=== PATIENT | male | born 1975 | race Caucasian/White ===

== ENCOUNTER 2022-03-20 00:35 | Day surgery (SDC) | payer BC, SELFPAY ==
[2022-03-06 11:34] VITALS: BMI 34.4
[2022-03-20 08:09] VITALS: BP 124/79; PULSE 66; RESP 18; TEMP 36.2; O2SAT 100; BMI 36.4
[2022-03-20] MEDS: LACTATED RINGERS 1,000 ML 150 ML IV CONT (08:30)
--- NOTE | 2022-03-20 08:37 | P.HP_ITS ---
History of Present Illness History of Present Illness Consent: Risks, benefits, and alternatives have been discussed and questions answered. Patient agrees to proceed with procedure. Chief complaint: neoplasm screening Narrative: Simone Suarez is a 46 year old male Presents for screening colonoscopy. Patient's current weight appetite and bowel movements are normal. He denies abdominal pain. He has had no bleeding. Family history is noncontributory. Review of Systems Review of Systems: Review of systems noncontributory. [facility] Past Medical History Medical History (Updated 03/20/22 @ 08:38 by Catalino Llanes MD) HLD (hyperlipidemia) Surgical History Surgical History Hx of vasectomy Social History Social History Smoking status: Never smoker Second hand tobacco smoke exposure: No Alcohol intake: current Substance use: never Substance use type: does not use Living arrangements: with family Occupation/Education: occupation Gender identity (if verbalized by the patient): Male Sexual Orientation (if Verbalized by the Patient): Straight or Heterosexual Spiritual care concerns: No Meds Home Medications and Allergies Home Medications Medication Instructions Recorded Confirmed Type sodium,potassium,mag sulfates 17.5 See Rx Instructions PO .COMPLEX 02/05/22 Rx gram-3.13 gram-1.6 gram oral soln #354 mL (Suprep Bowel Prep Kit) Allergies Allergy/AdvReac Type Severity Reaction Status Date / Time No Known Allergies Allergy Verified 03/06/22 11:33 Vital Signs Vital Signs - 24 hr 03/20/22 08:09 Temperature 97.1 F L Pulse Rate 66 Respiratory Rate 18 Blood Pressure 124/79 Pulse Oximetry 100 Oxygen Delivery Room Air Exam Narrative: Physical exam reveals patient to be alert. Vital signs stable. HEENT exam is unremarkable. Patient is anicteric. Lungs are clear to auscultation and percussion. Heart is without murmur or extra sounds. Abdomen bowel sounds present soft nontender with no organomegaly. Digital external rectal exam is normal. Assessment and Plan Assessment and plan (1) Encounter for screening colonoscopy: Code(s): Z12.11 - Encounter for screening for malignant neoplasm of colon Status: Acute Assessment and Plan: Patient presents today for screening colonoscopy. He appears to be at average risk for colon polyps. Further recommendations may be given after endoscopy.
--- NOTE | 2022-03-20 08:46 | P.PNAN_ITS ---
Anes - Initial Pre Proc Eval Procedure: Operation Date: 03/20/22 09:00 Proposed Procedures p Screening Colonoscopy - Catalino Llanes MD Date/Time: 03/20/22 08:46 Surgeon: Catalino Llanes MD Pre Op Diagnosis: neoplasm screening Patient Data Age: 46 Gender: M Height: 1.78 m Weight: 115.3 kg Last Vital Signs Temp 97.1 F L 03/20/22 08:09 Pulse 66 03/20/22 08:09 Resp 18 03/20/22 08:09 BP 124/79 03/20/22 08:09 Pulse Ox 100 03/20/22 08:09 O2 Del Method Room Air 03/20/22 08:09 Allergies Allergy/AdvReac Type Severity Reaction Status Date / Time No Known Allergies Allergy Verified 03/06/22 11:33 Home Medications Medication Instructions Recorded Confirmed Type sodium,potassium,mag sulfates 17.5 See Rx Instructions PO .COMPLEX 02/05/22 Rx gram-3.13 gram-1.6 gram oral soln #354 mL (Suprep Bowel Prep Kit) Patient hx anesthesia problems: none Family hx anesthesia problems: none Results Review: All pre-operative results and documents have been reviewed as part of the pre- operative evaluation. PMF Past Medical History Medical History (Updated 03/20/22 @ 08:38 by Catalino Llanes MD) HLD (hyperlipidemia) Surgical History Surgical History Hx of vasectomy Social History Social History Smoking status: Never smoker Second hand tobacco smoke exposure: No Alcohol intake: current Substance use: never Substance use type: does not use Living arrangements: with family Occupation/Education: occupation Gender identity (if verbalized by the patient): Male Sexual Orientation (if Verbalized by the Patient): Straight or Heterosexual Spiritual care concerns: No Anes - Eval Final PreProcedure Day of Procedure 03/20/22 08:46 Patient weight: obese Airway: Mallampati scale class II ASA classification: II Anesthesia type and monitoring: general GIVS and standard monitoring Results Review: All pre-operative results and documents have been reviewed as part of the pre- operative evaluation. Informed Consent: The patient's anesthetic plan and its attendant risks and benefits were discussed with the patient/family/POA. Questions were solicited and answers provided to the satisfaction of the patient/family/POA.
[2022-03-20 08:54] VITALS: BP 123/85; PULSE 63; RESP 25; O2SAT 95
[2022-03-20 09:04] VITALS: BP 116/81; PULSE 62; RESP 26; O2SAT 97
[2022-03-20 09:14] VITALS: BP 116/82; PULSE 62; RESP 16; O2SAT 96
== END 2022-03-20 09:16 | disposition home or self-care (01) ==
PROVIDERS: PCP Family Medicine; Visit Provider Internal Medicine Gastroenterology
PROC: 0DJD8ZZ Inspection of Lower Intestinal Tract, Via Natural or Artificial Opening Endoscopic (ICD-10-PCS; CPT 45378; principal; 2022-03-20 09:00)
DX: Z12.11 Encounter for screening for malignant neoplasm of colon (principal); E78.5 Hyperlipidemia, unspecified; E66.9 Obesity, unspecified; Z68.36 Body mass index [BMI] 36.0-36.9, adult
CPT/HCPCS: 45378; J2704; J7120